=== PATIENT | male | born 1980 | race Caucasian/White ===

== ENCOUNTER 2020-05-26 06:15 | Emergency (ER) | payer BC, SELFPAY ==
--- NOTE | ~2020-05-26 | XR_ITS ---
XR ankle RT min 3V DATE: 05/26/2020 06:43 INDICATION: Right ankle pain following fall. TECHNIQUE: 4 views COMPARISON: None FINDINGS: No fracture or dislocation of the ankle or disruption of the ankle mortise. No periosteal r eaction or bone destruction. IMPRESSION: No fracture or dislocation Reviewed, dictated and finalized at location A. INSPECTOR IMPRESSION: No fracture or dislocation
[2020-05-26 06:20] VITALS: BP 144/68; PULSE 95; RESP 16; TEMP 36.4; O2SAT 99
--- NOTE | 2020-05-26 07:59 | ED.LOWEXIN ---
HPI - Extremity Injury (Lower) General Chief Complaint: Extremity Injury, Lower Stated Complaint: R ankle injury Time Seen by Provider: 05/26/20 07:47 Source: patient Mode of arrival: ambulatory Limitations: no limitations History of Present Illness HPI Narrative: 40 years old white male complaining of right ankle pain after falling down 4 steps 6-hour prior to arrival to the emergency room. Patient denies other injuries. Patient was have sleep during the fall. Review of Systems Review of Systems: Narrative: CONSTITUTIONAL: Denies fever, chills, or sweats. EYES: Denies visual changes, redness, or discharge. ENT: Denies rhinorrhea, congestion, sore throat, or otalgia. CARDIOVASCULAR: Denies chest pain, palpitations, or edema. RESPIRATORY: Denies cough or dyspnea. GASTROINTESTINAL: Denies abdominal pain, nausea, vomiting, or diarrhea. GENITOURINARY: Denies dysuria or hematuria. SKIN: Denies rash or itching. MUSCULOSKELETAL: Denies back pain, joint pain, or myalgia. NEUROLOGIC: Denies headache, numbness, or weakness. PSYCHIATRIC: Denies anxiety or depression. Exam Narrative: Exam Narrative: General appearance: Well-developed, well-nourished Skin: Normal color Head: Normocephalic, nontraumatic Eyes: Clear conjunctiva ENT: Oropharynx normal, ears normal, nose normal Neck: Supple, nontender Chest and respiratory: Airway patent, no respiratory distress, no accessory muscle use Heart: Regular rate/rhythm Abdomen: Soft, nontender, no organomegaly, quiet bowel sounds Vascular: Normal peripheral pulses, normal capillary refill. Musculoskeletal: Diffuse tenderness right ankle, no swelling, no bruises, no deformity, slight limited range of motion Neurologic: Alert and oriented ?3, [employer] is normal as tested, no gross motor deficit Course Course Emergency Course: Stable Vital Signs Vital signs: Vital Signs Temperature 36.4 C 05/26/20 06:20 Pulse Rate 95 05/26/20 06:20 Respiratory Rate 16 05/26/20 06:20 Blood Pressure 144/68 H 05/26/20 06:20 Pulse Oximetry 99 05/26/20 06:20 Temperature 36.4 C 05/26/20 06:20 Pulse Rate 95 05/26/20 06:20 Respiratory Rate 16 05/26/20 06:20 Blood Pressure 144/68 H 05/26/20 06:20 Pulse Oximetry 99 05/26/20 06:20 MDM - Extremity Injury (Lower) MDM Narrative Medical decision making narrative: X-ray right ankle ordered. Differential Diagnosis Differential diagnosis: Likely ankle sprain and strain and ankle fracture Critical Care Time Critical Care Time Critical Care Time: No Discharge Plan Discharge Clinical Impression: Ankle sprain and strain Patient Disposition: Home, Self-Care Condition: Stable Instructions: Ankle Sprain (ED) Additional Instructions: Return if symptoms are worsening , call your family physician for appointment, take Tylenol as as needed for aches and pain, continue home medications. Ice pack 20 minutes/h for the next 24 hours, keep right leg elevated, Erickson wrap, crutches, ibuprofen 600 every 6 hours as needed Follow-up/Referrals: Mynor,Jessee Zimmerman MD [Primary Care Provider] -
[2020-05-26 08:06] VITALS: BP 148/80; PULSE 87; RESP 18; O2SAT 100
== END 2020-05-26 08:08 | disposition home or self-care (01) ==
PROVIDERS: Emergency Provider Emergency Medicine; PCP Family Medicine
DX: S93.401A Sprain of unspecified ligament of right ankle, initial encounter (principal); S96.911A Strain of unspecified muscle and tendon at ankle and foot level, right foot, initial encounter; W10.9XXA Fall (on) (from) unspecified stairs and steps, initial encounter
CPT/HCPCS: 73610; 99283